=== PATIENT | female | born 1985 | race Caucasian/White ===

== ENCOUNTER 2020-04-21 08:33 | Outpatient (CLI) | payer OTHER, SELFPAY ==
--- NOTE | 2020-04-21 | ECG_ITS ---
Measurements Intervals [place] Rate: 87 P: 49 NV: 156 QRS: 41 QRSD: 97 T: 34 QT: 344 QTc: 416 Interpretive Statements SINUS RHYTHM NONSPECIFIC T-WAVE ABNORMALITY- INF/LAT LEADS BORDERLINE ECG Electronically Signed On 04-21-2020 9:13:19 DIRECTOR OF RESTAURANT by Fermin Espinoza D.O.
== END 2020-04-21 08:34 | disposition home or self-care (01) ==
LOC: ANHCARD 08:46
PROVIDERS: PCP Nurse Practitioner Family; Visit Provider Nurse Practitioner Family
DX: R00.8 Other abnormalities of heart beat (principal); R94.31 Abnormal electrocardiogram [ECG] [EKG]
CPT/HCPCS: 93005

== ENCOUNTER 2022-08-16 08:21 | Emergency (ER) | payer OTHER, SELFPAY ==
[2022-08-16 08:34] VITALS: BP 134/94; PULSE 79; RESP 14; TEMP 36.4; O2SAT 100
--- NOTE | 2022-08-16 08:34 | ED.URI ---
HPI - URI/Sore Throat General Chief Complaint: Upper Respiratory Infection Stated Complaint: Cough,Congestion,Sore Throat Time Seen by Provider: 08/16/22 08:34 Source: patient Mode of arrival: ambulatory Limitations: no limitations History of Present Illness HPI Narrative: 36-year-old female presents with complaint of fatigue, cough, nasal congestion, sore throat for past 4-5 days. Afebrile. Reports she is coughing up pain at peanut buttery brown sputum . Denies chest pain and shortness of breath. States that her sore throat is the worst. Is concerned that she has strep throat. All systems reviewed and negative Except as noted above. Related Data Home Medications Medication Instructions Recorded Confirmed lisinopril 20 1 tablet PO DAILY 03/24/20 08/16/22 mg-hydrochlorothiazide 12.5 mg tablet Allergies Allergy/AdvReac Type Severity Reaction Status Date / Time No Known Allergies Allergy Verified 08/16/22 08:36 Review of Systems Review of Systems: CONSTITUTIONAL: Denies fever, chills, or sweats. reports fatigue. EYES: Denies visual changes, redness, or discharge. ENT: Reports rhinorrhea, congestion, sore throat. Denies otalgia. CARDIOVASCULAR: Denies chest pain, palpitations, or edema. RESPIRATORY: reports cough. Denies dyspnea. GASTROINTESTINAL: Denies abdominal pain, nausea, vomiting, or diarrhea. GENITOURINARY: Denies dysuria or hematuria. SKIN: Denies rash or itching. MUSCULOSKELETAL: Denies back pain, joint pain, or myalgia. NEUROLOGIC: Reports headache. Denies numbness, or weakness. PSYCHIATRIC: Denies anxiety or depression. All other systems reviewed are negative, except as documented in HPI. [facility] Past Medical History Medical History Hypertension Shingles Surgical History Surgical History History of tonsillectomy Previous section Family History Family History Father Hypertension Grandparent Family history of bronchitis Family history of coronary artery disease Social History Social History Smoking status: Never smoker Alcohol intake: never Substance use: never Substance use type: does not use Lack of Transportation: No Lack of Food: Never True Current Housing: I Have Housing Concerned About Future Housing: No Difficulty Paying Gas/Electric Bills: No Difficulty Paying for Meds: No Currently Unemployed: No Education: Bachelor's Degree Difficulty w/ Childcare or Family Care: No Comments At time of signature, agree with nursing past medical, surgical, social and family history. There is no relevant family history pertinent to the presenting complaint. Exam Narrative: GENERAL: This is a well-nourished, well-developed patient, in no apparent distress. HEAD: normocephalic, atraumatic. EYES: PERRL. Sclera clear/white. Vision is grossly intact. EARS: External ears normal, auditory canals clear and without drainage, TMs normal without perforation. Hearing grossly intact. NOSE: External nose normal with Clear nasal drainage and erythema to both nares without swelling. THROAT: Mucous membranes moist, erythema and swelling to posterior pharynx without exudates. NECK: Neck supple, non-tender without lymphadenopathy, masses or thyromegaly. CARDIOVASCULAR: Regular rate and rhythm without murmurs, gallops, or rubs. RESPIRATORY: Clear to auscultation. Breath sounds equal bilaterally. No wheezes, rales, or rhonchi. SKIN: warm, Dry, intact with no suspicious lesions or rash, good texture and turgor. NEURO: awake, alert, and oriented to person, place and time. There were no obvious focal neurologic abnormalities. EXTREMITIES: No joint tenderness, effusion, or edema noted. Course Course Level of Care: Expre
== END 2022-08-16 08:50 | disposition home or self-care (01) ==
PROVIDERS: Emergency Provider Nurse Practitioner Family; PCP Nurse Practitioner Family
DX: J06.9 Acute upper respiratory infection, unspecified (principal); I10 Essential (primary) hypertension
CPT/HCPCS: 87081; 87880; 99213; G0463

== ENCOUNTER 2022-08-16 13:28 | Outpatient (NON) | payer OTHER, SELFPAY | END 2022-08-16 13:29 | disposition home or self-care (01) | LOC: ANHLAB 08-17 13:30 | PROVIDERS: PCP Nurse Practitioner Family; Visit Provider Nurse Practitioner | DX: L72.11 Pilar cyst (principal) | CPT/HCPCS: 87081; 87880; 88304; 99213; G0463 ==

== ENCOUNTER 2023-01-29 15:05 | Emergency (ER) | payer OTHER, SELFPAY ==
--- NOTE | 2023-01-29 15:09 | ED.URI ---
HPI - URI/Sore Throat General Chief Complaint: Upper Respiratory Infection Stated Complaint: sorethroat Time Seen by Provider: 01/29/23 15:09 Source: patient Mode of arrival: ambulatory Limitations: no limitations History of Present Illness HPI Narrative: Patient is a 37-year-old female who presents with 3 days of worsening sore throat and cough. Patient states all last week she had congestion, ear fullness and sinus pressure. Patient took [id number] medication with moderate relief. Patient states symptoms resolved almost completely on Saturday in new symptoms started on Saturday. Patient has history of tonsillectomy. Denies any fever, chills, nausea, vomiting, diarrhea. Related Data Home Medications Medication Instructions Recorded Confirmed lisinopril 20 1 tablet PO DAILY 03/24/20 01/29/23 mg-hydrochlorothiazide 12.5 mg tablet Allergies Allergy/AdvReac Type Severity Reaction Status Date / Time No Known Allergies Allergy Verified 01/29/23 15:08 Review of Systems Review of Systems: All systems reviewed & are unremarkable except as noted in HPI and below Constitutional: Constitutional: Denies body ache(s), Denies chills, Denies fatigue, Denies fever(s), Denies headache(s), Denies malaise and Denies weakness Eyes: Eyes: Denies blurry vision, Denies itchy eyes and Denies loss of vision ENT: Denies otalgia, Denies headache(s), Denies nasal congestion, Denies sinus pain and Reports sore throat Cardiovascular: Cardiovascular: Denies chest pain, Denies irregular heart rhythm and Denies dyspnea Respiratory: Respiratory: Reports cough and Denies dyspnea Gastrointestinal: Gastrointestinal: Denies abdominal pain, Denies diarrhea, Denies nausea and Denies vomiting Musculoskeletal: Musculoskeletal: Denies back pain, Denies myalgias and Denies arthralgias Integumentary/Breasts: Skin/Breast: Denies pruritus and Denies rash Neurologic: Denies headache(s), Denies loss of vision and Denies weakness Psychiatric: Psychiatric: Reports no additional psychiatric complaints Endocrine: Endocrine: Denies fatigue Allergic/Immunologic: Allergic/Immunologic: Denies itchy eyes PMFSH Past Medical History Medical History Hypertension Shingles Surgical History Surgical History History of tonsillectomy Previous section Family History Family History Father Hypertension Grandparent Family history of bronchitis Family history of coronary artery disease Social History Social History Smoking status: Never smoker Alcohol intake: never Substance use: never Substance use type: does not use Lack of Transportation: No Lack of Food: Never True Current Housing: I Have Housing Concerned About Future Housing: No Difficulty Paying Gas/Electric Bills: No Difficulty Paying for Meds: No Currently Unemployed: No Education: Bachelor's Degree Difficulty w/ Childcare or Family Care: No Comments At time of signature, agree with nursing past medical, surgical, social and family history. There is no relevant family history pertinent to the presenting complaint. Exam Const: General: cooperative, healthy appearing, comfortable, no acute distress and well nourished Nutritional Appearance: well nourished Orientation/consciousness: patient oriented x3 Limitations: no limitations HENMT: Head: normal to inspection, normocephalic and atraumatic Ears: hearing grossly normal bilaterally, external ears normal, TM's normal bilaterally, EAC's normal and no periauricular adenopathy Face/Nose/Sinus: Normal external nose present, Normal nasal mucous membranes and turbinates present, normal facial exam, sinuses nontender and face symmetric Face and sinus: normal facial exam, sinus
[2023-01-29 15:23] VITALS: BP 148/99; PULSE 78; RESP 18; TEMP 36.4; O2SAT 100
== END 2023-01-29 15:46 | disposition home or self-care (01) ==
PROVIDERS: Emergency Provider Nurse Practitioner Family; PCP Nurse Practitioner Family
DX: J02.9 Acute pharyngitis, unspecified (principal); I10 Essential (primary) hypertension
CPT/HCPCS: 87081; 87880; 99213; G0463

== ENCOUNTER 2023-06-28 07:30 | Outpatient (CLI) | payer OTHER, SELFPAY ==
--- NOTE | ~2023-06-28 | MR_ITS ---
EXAMINATION: MR brain/brain stem wo con DATE: 06/28/2023 08:49 INDICATION: Changes in migraine and concern for pituitary adenoma TECHNIQUE: Magnetic resonance imaging (MRI) of the brain and brainstem was performed without intraven ous contrast. Sequences included sagittal and axial T1-weighted SE, axial diffusion-weighted FS SE, a xial 3D SWAN, axial T2-weighted FLAIR,, axial T2-weighted FSE. Additional thin axial and coronal T1-w eighted FSE sequences of the region of the pituitary were also obtained. Apparent diffusion coefficie nt (ADC) maps were created. COMPARISON: None. FINDINGS: There are no areas of restricted diffusion to suggest acute infarction. No intracranial hemorrhage or abnormal intracranial mass lesion. Specifically the pituitary is normal in size with no nodular exte nsion above the sella to suggest pituitary macroadenoma. The pituitary stalk appears normal and midli ne. There are no intraparenchymal signal abnormalities seen on the other pulse sequences. The ventric les are symmetric and normal in size. There are no abnormal extra-axial fluid collections. Flow voids are seen in the cerebral arteries on the T2-weighted sequences consistent with their expected patenc y. Visualized orbits and soft tissues are unremarkable. IMPRESSION: 1. Normal brain MR Reviewed, dictated and finalized at location [facility] IMPRESSION: 1. Normal brain MR
== END 2023-06-28 07:31 | disposition home or self-care (01) ==
PROVIDERS: PCP Nurse Practitioner Family; Visit Provider Nurse Practitioner Family
DX: G43.909 Migraine, unspecified, not intractable, without status migrainosus (principal); R79.89 Other specified abnormal findings of blood chemistry; I10 Essential (primary) hypertension
CPT/HCPCS: 70551

== ENCOUNTER 2024-05-29 13:45 | Emergency (ER) | payer OTHER, SELFPAY ==
--- NOTE | 2024-05-29 13:59 | ED_ITS ---
HPI - URI/Sore Throat General Chief Complaint: Upper Respiratory Infection Stated Complaint: fever,chills,bodyaches,cough Time Seen by Provider: 05/29/24 13:45 Source: patient Mode of arrival: ambulatory Limitations: no limitations History of Present Illness HPI Narrative: Patient is a 38-year-old female presents with fever, chills, body aches, headache and cough that started yesterday. Patient has been taking Tylenol and ibuprofen. Reports fever of 101.5. Denies any nausea, vomiting, diarrhea. Related Data Allergies Allergy/AdvReac Type Severity Reaction Status Date / Time No Known Allergies Allergy Verified 05/29/24 13:52 Review of Systems Review of Systems: All systems reviewed & are unremarkable except as noted in HPI and below Constitutional: Constitutional: Reports body ache(s), Reports chills, Denies fatigue, Reports fever(s), Reports headache(s), Denies malaise and Denies weakness Eyes: Eyes: Denies blurry vision, Denies itchy eyes and Denies loss of vision ENT: Denies otalgia, Denies headache(s), Reports nasal congestion, Denies sinus pain and Denies sore throat Cardiovascular: Cardiovascular: Denies chest pain, Denies irregular heart rhythm and Denies dyspnea Respiratory: Respiratory: Reports cough and Denies dyspnea Gastrointestinal: Gastrointestinal: Denies abdominal pain, Denies diarrhea, Denies nausea and Denies vomiting Musculoskeletal: Musculoskeletal: Denies back pain, Reports myalgias and Denies arthralgias Integumentary/Breasts: Skin/Breast: Denies pruritus and Denies rash Neurologic: Reports headache(s), Denies loss of vision and Denies weakness Psychiatric: Psychiatric: Reports no additional psychiatric complaints Endocrine: Endocrine: Denies fatigue Allergic/Immunologic: Allergic/Immunologic: Denies itchy eyes PMFSH Past Medical History Medical History Insomnia Migraine Essential (primary) hypertension Headache Low serum luteinizing hormone (LH) Low serum follicle stimulating hormone (FSH) Hypertension Shingles Surgical History Surgical History Previous section History of tonsillectomy Family History Family History Father Hypertension Depression Anxiety Thyroid disorder Alcoholism Heart problem Grandparent Family history of bronchitis Family history of coronary artery disease Mother Hypertension Social History Social History Smoking status: Never smoker Alcohol intake: never Substance use: never Substance use type: does not use Lack of Transportation: No Lack of Food: Never True Current Housing: I Have Housing Concerned About Future Housing: No Difficulty Paying Gas/Electric Bills: No Difficulty Paying for Meds: No Currently Unemployed: No Education: Bachelor's Degree Difficulty w/ Childcare or Family Care: No Living arrangements: with family Occupation/Education: occupation Gender identity (if verbalized by the patient): Female Comments At time of signature, agree with nursing past medical, surgical, social and family history. There is no relevant family history pertinent to the presenting complaint. Exam Const: General: cooperative, healthy appearing, comfortable, no acute distress and well nourished Nutritional Appearance: well nourished Orientation/consciousness: patient oriented x3 Limitations: no limitations HENMT: Head: normal to inspection, normocephalic and atraumatic Ears: hearing grossly normal bilaterally, external ears normal, TM's normal bilaterally, EAC's normal and no periauricular adenopathy Face/Nose/Sinus: Normal external nose present, Abnormal mucous membranes and turbinates present erythematous bilateral and diffuse, normal facial exam, sinuses nontender and face symmetric Face and sinus: normal facial exam, sinuses nontender and face symmetric Mouth: Yes Normal oral and palatal mucosa present, Yes lip normal, Yes tongue normal, Yes Normal salivary glands and ducts present, Yes oropharynx normal and Yes moist mucous membranes Teeth and gingiva: dentition normal Throat: posterior oropharynx normal, tonsils normal and uvula midline Eyes: General: appearance normal, both eyes and all related structures Alignment and Position: alignment normal and position normal Periorbital: periorbital findings normal Eyelids: eyelids normal Pupils: Equal, round and reactive pupils present Neck: Neck: normal visual inspection, full ROM, no lymphadenopathy and supple Chest: Chest palpation & inspection: normal inspection of the chest and normal palpation of entire chest wall Resp: Effort & Inspection: normal respiratory effort and able to speak in complete sentences Auscultation: clear to auscultation bilaterally, no crackles, no rales, no rhonchi and no wheezes Cardio: Rate: regular rate Rhythm: regular rhythm Heart sounds: S1 normal heart sound present and S2 normal heart sound present GI: Inspection: normal to inspection Skin: General skin exam: normal color and no rashes or lesions noted Neuro: General: patient oriented x3 and moves all extremities Cranial nerves: Yes Equal, round and reactive pupils present Speech: normal speech Gait exam (Neuro): Normal gait present Extrem: General: normal to inspection, full ROM and no edema Psych: Appearance: grossly normal and well kempt Mental Status: mental status grossly normal Speech and movement: Normal speech and movement present Affect: normal affect Attitude: cooperative Thought process: Normal thought process present Course Course Emergency Course: Discharge instructions reviewed with patient, as well as provided in writing per nursing staff. The instructions also include specific and strict return/GO TO THE ER as well as f/u information. All questions have been answered, and the patient deny any further questions with discharge and discharge plan. Portions of this record may have been created with voice recognition software Level of Care: Express Care Visit Vital Signs Vital signs: Vital Signs Temperature 38.1 C H 05/29/24 14:34 Pulse Rate 102 H 05/29/24 14:34 Respiratory Rate 16 05/29/24 14:34 Blood Pressure 145/94 H 05/29/24 14:34 Pulse Oximetry 99 05/29/24 14:34 Oxygen Delivery Room Air 05/29/24 14:34 Temperature 38.1 C H 05/29/24 14:34 Pulse Rate 102 H 05/29/24 14:34 Respiratory Rate 16 05/29/24 14:34 Blood Pressure 145/94 H 05/29/24 14:34 Pulse Oximetry 99 05/29/24 14:34 Oxygen Delivery Room Air 05/29/24 14:34 Reviewed MDM - URI/Sore Throat MDM Narrative Medical decision making narrative: Pt well hydrated appearing, in no respiratory distress, hemodynamically stable. Recommend supportive care. The patient is stable at time of discharge the clinical impression was discussed and the patient was given the opportunity to ask questions, which were addressed as completely as possible given the information available at present. Anticipatory guidance and return to care precautions were discussed and the importance of primary care follow-up was stressed and encouraged. The patient voiced understanding of the plan, indications to return, and the need for follow-up. Differential diagnosis considered: Arana virus, strep pharyngitis, allergic rhinitis, upper respiratory tract infection, sinusitis, rhinosinusitis, nasopharyngitis. viral pharyngitis, otitis media, otitis externa, otitis effusion, foreign body, cerumen impaction, viral syndrome, and influenza.? Exam findings show no acute concerns or changes; patient is non-toxic appearing and is in no distress.? Patient is appropriate for outpatient treatment and follow- up.? Medical Records Attestation: I reviewed the patient's medical records. Lab Data Attestation: I reviewed the patient's lab results. Lab results narrative: Patient was positive for influenza A Discharge Plan Discharge Clinical Impression: Influenza Patient Disposition: Home, Self-Care Condition: Stable Instructions: Influenza (ED) Additional Instructions: Were positive for influenza A. Your Covid is negative Your symptoms are due to a viral illness, which is not treated with antibiotics. Viral symptoms can be present for up to a few weeks. -For fever/pain, you may take: Tylenol 650-1000mg by mouth every 4-6 hours. Do not exceed 4000mg in 24 hours. Advil (Ibuprofen) 600 mg by mouth every 6 hours. Do not exceed 2400mg in 24 hours. 8 AM: Tylenol 11 AM: Ibuprofen 2 PM: Tylenol 5 PM: Ibuprofen 8 PM: Tylenol 11 PM: Ibuprofen 2 AM: Tylenol 5 AM: Ibuprofen -Antihistamine medication such as Benadryl/Zyrtec at night and Claritin/Gabriela during the day can help improve symptoms. -Use Flonase twice a day for 5 days then daily to help reduce the inflammation and dry up your sinuses. -You can also use Sudafed behind the pharmacy counter(12 or 24 hour). Be sure to drink plenty of water with these medications at least 8 ounces with every dose and it is important to drink 8 to 10 glasses of water per day. Water is a natural decongestant -Eat and drink things that are easy to swallow, like tea or soup, or popsicles. -Oral rinses such as: Salt water gargles and/or may use topical anesthetic (eg. Chloraseptic spray) or lozenges to relieve dryness or throat pain). -Frequent hand washing or hand yarn spinner is one of the best ways to prevent spread of infection. -Using a vaporizer or humidifier at night will also help thin secretions and help with coughing up phlegm. -Follow up with primary care provider in 3-5 days if condition is not improving - For new or worsening symptoms go directly to the nearest ER Your blood pressure was elevated above 120/80 today at Urgent Care. This puts you above the threshold for follow up visit with a primary care provider. High blood pressure does not usually cause any symptoms, however it may lead to kidney failure, stroke, heart disease just to name a few if untreated . Many people are anxious when seeing a provider or nurse. As a result, you are not diagnosed with hypertension at this time unless your blood pressure is persistently high at two office visits at least one week apart. Some things that can help lower blood pressure are lifestyle modifications, such as light exercise, decreased salt in diet, and weight loss. It is important to follow up with a PCP about this within 1 week. Patient Language: Greenlandic Prescriptions: New oseltamivir [Tamiflu] 75 mg capsule 75 mg PO Q12H 5 Days Qty: 10 0RF No Action lisinopril-hydrochlorothiazide 20-12.5 mg tablet 1 tablet PO DAILY Qty: 90 0RF Follow-up/Referrals: Justina Corbin APRN [Primary Care Provider] - 3 Days Stand Alone Forms: Work/School Release IP Time of Disposition: 14:33
[2024-05-29 14:34] VITALS: BP 145/94; PULSE 102; RESP 16; TEMP 38.1; O2SAT 99
[2024-05-29 15:30] LABS: EDINFLUASCREEN Positive (Negative); EDINFLUBSCREEN Negative (Negative)
== END 2024-05-29 14:39 | disposition home or self-care (01) ==
PROVIDERS: Emergency Provider Nurse Practitioner Family; PCP Nurse Practitioner Family
DX: J11.1 Influenza due to unidentified influenza virus with other respiratory manifestations (principal); I10 Essential (primary) hypertension
CPT/HCPCS: 87804; 99213; G0463

== ENCOUNTER 2024-12-22 08:03 | Emergency (ER) | payer OTHER, SELFPAY ==
[2024-12-22 08:16] VITALS: BP 113/81; PULSE 64; RESP 18; TEMP 36.3; O2SAT 100
--- OUTSIDE RECORDS SUMMARY | 2024-12-22 08:22 | XMS_ITS | Encounter Summary ---
Author Organization [facility] Address [address] [place] [id number] Care Team Providers Care Fish Tender Name Role Phone Justina Corbin [facility] Primary Care Provider + Encounter Details Date Type Department Care Team (Late st Contact Info) Description 09/06/2020 Shared Spectrum Message Enc [facility], [address] [address] Mychart, [facility] Provider My Chart Message Reply Social History Tobacco Use Types Packs/Day Years Used Date Smoking Tobacco: Never Smokeless Tobacco: Never Alcohol Use Standard Drinks/Week Comments Yes 0 (1 standard drink = 0.6 oz pur e alcohol) AUDIT-C Answer Date Recorded Q1: How often do you have a drink containing alc ohol? 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 No / Unsure 08/22/2020 10:18 AM CDT documented as of this encounter Plan of Treatment Not on file documented as of this encounter Visit Diagnoses Not on filedocumented in this encounter Care Teams Fish Tender Relationship Specialty Start Date End Date Justina Corbin, CERTIFIED PERSONAL FINANCE COUNSELOR- [address] [place] [address] PCP - General NURSE PRACTITIONER 06/27/20 documented as of this encounter
--- OUTSIDE RECORDS SUMMARY | 2024-12-22 08:22 | XMS_ITS | Clinical Summary ---
Author Organization [facility] [place] Address [facility] [place] [address] Care Team Providers Care Anchor Operator Name Role Phone No, Physician Primary Care Provider [phone] Allergies No known active allergies Medications enalapril (VASOTEC) 5 mg tablet enalapril maleate 5 mg tablet Active lisinopril-hydr oCHLOROthiazide (ZESTORETIC) 20-12.5 mg per tablet TK 1 T PO QD 1 9 Active TRI-SPRINTEC, 28, 0.18/0.215/0.25 mg-35 mcg (28) per tablet TK 1 T PO QD 1 9 Active raNITIdine (ZANTAC) 150 mg tablet ranitidine 150 mg tablet Active Active Problems No known active problems Social History Tobacco Use Types Packs/Day Years Used Date Smoking Tobacco: Never Personal Safety Answer Date Recorded Getting School Help Needed Not on file 07/20 Comments Unknown Sex and Gender Information Value Date Recorded Sex Assigned at Not on file Legal Sex Female 8:03 AM CDT Gender Identity Not on file Sexual Orientation Not on file Obstetrics History Plan of Treatment Not on file Insurance [facility] CHO[employer] [facility] HMO/PPO Address: [facility] [address] [place] [address] Care Teams Anchor Operator Relationship Specialty Start Date End Date No, Physician PCP - General 10/22/18
--- OUTSIDE RECORDS SUMMARY | 2024-12-22 08:22 | XMS_ITS | Encounter Summary ---
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 No / Unsure 07/22/2020 10:37 AM CDT documented as of this encounter Plan of Treatment Not on file documented as of this encounter Procedures Procedure Name Priority Date/Time Associated Diagnosis Comments HEMOGLOBIN, GLYCOSYLATED Routine 06/14/2022 COMPREHENSIVE METABOLIC PANEL Routine 06/14/2022 LIPID PANEL Routine 06/14/2022 CBC, MANUAL DIFF Routine 06/14/2022 THYROID STIM HORMONE TSH Routine 06/14/2022 SARS-COV-2 COVID-19 ANTIBODY Routine 04/21/2020 CBC (OUTSIDE LAB) Routine 04/21/2020 CBC (OUTSIDE LAB) Routine 04/21/2020 COMPREHENSIVE METABOLIC PANEL Routine 04/21/2020 LIPID PANEL Routine 04/21/2020 LIPID PANEL Routine 04/21/2020 THYROID STIM HORMONE TSH Routine 04/21/2020 THYROID STIM HORMONE TSH Routine 04/21/2020 documented in this encounter Results * COMPREHENSIVE METABOLIC PANEL (06/14/2022) Pathologist [facility] SODIUM S/P/B 136 GLUCOSE 78 mg/dL AST 15 BUN 15 CREATININE S/P/B 0.71 0.5 - 1.0 CALCIUM S/P/B 9.7 POTASSIUM S/P/B 4.1 CHLORIDE S/P/B 97 ALT 11 GFR ESTIMATE 114 us Default History Genericprovider LABORATORY Final Result * LIPID PANEL (06/14/2022) CHOLESTEROL 191 TRIGLYCERIDES 98 HDL 76 LDL (CALCULATED) 96 NON HDL CHOLESTEROL 115 us Default History Genericprovider LABORATORY Final Result * CBC, MANUAL DIFF (06/14/2022) Pathologist [facility] WBC 9.7 HGB 14.5 HCT 43.7 PLT 286 us Default History Genericprovider LABORATORY Final Result * HEMOGLOBIN, GLYCOSYLATED (06/14/2022) Pathologist [facility] HGB A1C 5.0 % us Default History Genericprovider LABORATORY Final Result * THYROID STIM HORMONE, TSH (06/14/2022) [facility] TSH 2.35 us Default History Genericprovider LABORATORY Final Result * SARS-COV-2 COVID-19 ANTIBODY (04/21/2020) Pathologist [facility] SARS-COV-2 IGG Positive 04/21/2020 us Doc [facility] Abstract PROCEDURES-UNRESULTED Final Result * LIPID PANEL (04/21/2020) [facility] CHOLESTEROL 168 HDL 55 TRIGLYCERIDES 192 NON HDL CHOLESTEROL 113 LDL (CALCULATED) 84 04/21/2020 us Doc [facility] Abstract LABORATORY Final Result * CBC (OUTSIDE LAB) (04/21/2020) Pathologist [facility] WBC 8.6 HGB 13.4 HCT 40.2 PLT 292 04/21/2020 us Doc [facility] Abstract LAB-OUTSIDE/ABSTRACTED Final Result * THYROID STIM HORMONE, TSH (04/21/2020) [facility] TSH 3.03 04/21/2020 us Doc [facility] Abstract LABORATORY Final Result * THYROID STIM HORMONE, TSH (04/21/2020) Pathologist [facility] TSH 3.03 04/21/2020 us Doc [facility] Abstract LABORATORY Final Result * CBC (OUTSIDE LAB) (04/21/2020) Pathologist [facility] WBC 8.6 HGB 13.4 HCT 40.2 PLT 292 04/21/2020 us Doc [facility] Abstract LAB-OUTSIDE/ABSTRACTED Final Result * (ABNORMAL) COMPREHENSIVE METABOLIC PANEL (04/21/2020) SODIUM S/P/B 139 POTASSIUM S/P/B 4.1 CO2 29 CHLORIDE S/P/B 100 GLUCOSE 78 mg/dL CALCIUM S/P/B 9.2 BUN 11 CREATININE S/P/B 0.69 0.5 - 1.0 EGFR AFR. AMER. 133(A) <=90 EGFR NON-AFR. AMER. 114(A) <=90 ALKALINE PHOSPHATASE S/P/B 74 ALT 28 AST 15 BILIRUBIN TOTAL S/P/B 0.7 ALBUMIN S/P/B 4.1 3.5 - 5.0 TOTAL PROTEIN S/P/B 7.0 GLOBULIN 2.9 04/21/2020 us Doc [facility] Abstract LABORATORY Final Result * LIPID PANEL (04/21/2020) CHOLESTEROL 188 HDL 55 TRIGLYCERIDES 192 NON HDL CHOLESTEROL 113 LDL (CALCULATED) 84 04/21/2020 us Doc [facility] Abstract LABORATORY Final Result documented in this encounter Visit Diagnoses Not on filedocumented in this encounter Care Teams Bulk Plant Manager Relationship Specialty Start Date End Date Justina Corbin, SWATCHER- [address] [place] [phone] PCP - General NURSE PRACTITIONER 06/27/20 documented as of this encounter
--- OUTSIDE RECORDS SUMMARY | 2024-12-22 08:22 | XMS_ITS | Clinical Summary ---
Author Organization [facility] Address [address] [place] [address] Care Team Providers Care Coater Name Role Phone Justina Corbin Mary [facility] Primary Care Provider + Allergies No known active allergies Medications lisinopril-hydro CHLOROthiazide 20-12.5 MG tablet Take 1 tablet by mouth daily. 06/02/2020 Active TRI-SPRINTEC 0.18/0.215/0.25 MG-35 MCG tablet Take 1 tablet by mouth daily. 05/23/2020 Active Active Problems Problem Noted Date Diagnosed Date Irregular heart beat 07/05/2020 Heart palpitations 07/05/2020 Essential hypertension 07/05/2020 Immunizations Immunization Administration Dates Next Due Tdap (Generic) 05/25/2016 Family History Medical History Relation Comments AAA Father CHF Father Coronary artery disease Father Heart Attack Father Hyperlipidemia Father Stent Cardiac Father Thyroid Disease Father Vascular Disease Father Heart Attack Maternal Grandfather Heart Attack Maternal Grandmother Hypertension Mother Vascular Disease Mother Heart Attack Paternal Grandfather Pacemaker Paternal Grandfather CHF Paternal Grandmother Relation Status Comments Father (Age 72) Maternal Grandfather (Age 57) Maternal Grandmother (Age 62) Mother Alive Paternal Grandfather (Age 60) Paternal Grandmother (Age 83) Social History Tobacco Use Types Packs/Day Years Used Date Smoking Tobacco: Never Smokeless Tobacco: Never Tobacco Cessation:Counseling Given: Not Answered Alcohol Use Standard Drinks/Week Comments Yes 0 [...] on file 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 Gender Identity Not on file Sexual Orientation Not on file Last Filed Vital Signs Vital Sign Reading Time Taken Comments Blood Pressure 130/70 12/18/2022 9:11 AM CDT Pulse 80 12/18/2022 8:58 AM CDT Temperature - - Respiratory Rate - - Oxygen Saturation 100% 12/18/2022 8:58 AM CDT Inhaled Oxygen Concentration - - Weight 94.5 kg (208 lb 6.4 oz) 12/18/2022 8:58 A M CDT Height 175.3 cm (5' 9) 12/18/2022 8:58 AM CDT Body Mass Index 30.78 12/18/2022 8:58 AM CDT Plan of Treatment Health Maintenance Due Date Last Done Comments Cervical Cancer Screening Pa p Smear (Age 30 to 64) Every 3 Years 1986 Annual Physical 1989 Hepatitis C 2004 Hepatitis B Vaccines (1 of 3 - 19+ 3-dose series) 2005 HPV Vaccines (1 - 3-dose SCD M series) 2013 Cervical Cancer Screening Pa p with HPV Testing (Age 30 to 64) Every 5 Years 2016 Cervical Cancer Screening with HPV 2016 COVID-19 Vaccine (2023-2 5 season) 2024 DTaP, Tdap and Td Vaccines ( 2 - Td or Tdap) 05/25/2026 05/25/2016 Meningococcal B Vaccine Aged Out No l onger eligible based on patient's age to complete this topic Meningococcal Vaccine Aged Out No je aleida eligible based on patient's age to complete this topic Pneumococcal Vaccine: Pediat rics (0 to 5 Years) and At-Risk Patients (6 to 49 Years) Aged Out No longer eligi ble based on patient's age to complete this topic RSV Immunizations Under 20 Months Aged Out No longer eligible based on patient's age to complete this topic Insurance [facility] Care Teams Coater Relationship Specialty Start Date End Date Justina Corbin, OFFSET PRESS OPERATOR APPRENTICE-BC [address] [place] [phone] PCP - General NURSE PRACTITIONER 06/27/20
--- OUTSIDE RECORDS SUMMARY | 2024-12-22 08:22 | XMS_ITS | Clinical Summary ---
Author Organization [facility] [employer] Address [address] [place] [address] Care Team Providers Care Water Main Installer Helper Name Role Phone Justina Corbin Mary ALFARO-DIRECTOR DATABASE Primary Care Provider Source Comments [facility],non-owned Affiliates and Associated Physician Practices is amultiple site organization consisting of ambulatory clinics and hospital sitesin [place], [place], [place] and [place]. This disclosure is being madepursuant to the Care Everywhere program and may not contain all information available regarding this patient. Last updated 18.[facility] [employer] Allergies No known active allergies Medications * Be aware that medications may not be up to date on this document. Alwaysverify current medications with the patient. Tri-Sprintec tablet 08/02/2023 Active lisinopril-hydro CHLOROthiazide (Prinzide; Zestoretic) 20-12.5 MG tablet Take 1 (one) tablet by mouth once daily 06/28/2023 Active Active Problems Problem Noted Date Diagnosed Date Low serum follicle stimulating hormone (FSH) 05/2023 Overview (08/05/2023): Low LH and Low FSH with normal estradiol On an OCP tri-sprintec tablets Immunizations Immunization Administration Dates Next Due TDAP (7yrs+) 05/25/2016 Social History Tobacco Use Types Packs/Day Years Used Date Smoking Tobacco: Never Smokeless Tobacco: Never Tobacco Cessation:Counseling Given: Not Answered Alcohol Use Standard Drinks/Week Comments Yes 3 (1 standard drink = 0.6 oz pur e alcohol) Comments No Sex and Gender Information Value Date Recorded Sex Assigned at Not on file Legal Sex Female 10:47 AM CDT Gender Identity Not on file Sexual Orientation Not on file Last Filed Vital Signs Vital Sign Reading Time Taken Comments Blood Pressure 145/91 08/05/2023 9:16 AM CDT Pulse 84 08/05/2023 9:16 AM CDT Temperature 36.8 C (98.3 F) 08/05/2023 9:16 AM CDT Respiratory Rate 14 08/05/2023 9:16 AM CDT Oxygen Saturation 97% 08/05/2023 9:16 AM CDT Inhaled Oxygen Concentration - - Weight 102.4 kg (225 lb 12.8 oz) 08/05/2023 9:16 AM CDT Height 175.3 cm (5' 9) 08/05/2023 9:16 AM CDT Body Mass Index 33.34 08/05/2023 9:16 AM CDT Plan of Treatment Health Maintenance Due Date Last Done Comments HIV SCREENING 2001 HEPATITIS C SCREENING 08/22/2004 HEPATITIS B VACCINE (1 of 3 - 19+ 3-dose series) 2005 PAP SMEAR 08/28/2007 HPV VACCINE (1 - 3-dose SCDM series) 2013 COVID-19 VACCINE (2023-2 5 season) 2024 DEPRESSION SCREENING 05/06/2024 INFLUENZA VACCINE (#1) 2025 DTAP/TDAP/TD VACCINES (2 - T d or Tdap) 05/25/2026 05/25/2016 ZOSTER VACCINE (1 of 2) 2036 HIB VACCINE Aged Out No longer eligi ble based on patient's age to complete this topic MENINGOCOCCAL (Group B) VACC INE SHARED DECISION-MAKING Aged Out No longer eligibl e based on patient's age to complete this topic MENINGOCOCCAL GROUPS A/C/Y/W VACCINE Aged Out No longer eligible b ased on patient's age to complete this topic PNEUMOCOCCAL VACCINE Aged Out No long er eligible based on patient's age to complete this topic Insurance [facility] Member Subscriber Plan / Payer (Ef fective 2016-Present) Name:Tammy Huddleston Relation to Subscriber:Self Name:Tammy Huddleston Payer ID:[id number] (NAIC) Type:HMO Address: [place] [phone] [facility] Care Teams Water Main Installer Helper Relationship Specialty Start Date End Date Justina Corbin APRN-SAIMA [address] [place] [phone] PCP - General Nurse Practitioner Family 08/05/23
--- OUTSIDE RECORDS SUMMARY | 2024-12-22 08:22 | XMS_ITS | Encounter Summary ---
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
--- OUTSIDE RECORDS SUMMARY | 2024-12-22 08:22 | XMS_ITS | Clinical Summary ---
Author Organization [employer] [facility] - 2022 Address [address] [facility] 3[address] [place] [address] Phone Care Team Providers Care Wallpaper Hanger Helper Name Role Phone Everardo Castillo MD Primary Care Provider [phone] Allergies No known active allergies Medications VIT/FE FUMARATE/FA (ESTHELA ORAL) Take 1 Tab by mouth daily. Active Family History Medical History Relation Name Comments Healthy Father Heart Disease Maternal Grandfather Heart Disease Maternal Grandmother Other Mother pancreatitis Heart Disease Paternal Grandfather Heart Disease Paternal Grandmother Relation Name Status Comments Father Maternal Grandfather Maternal Grandmother Mother Paternal Grandfather Paternal Grandmother Social History Tobacco Use Types Packs/Day Years Used Date Smoking Tobacco: Never Smokeless Tobacco: Never Alcohol Use Standard Drinks/Week Comments No 0 (1 standard drink = 0.6 oz pur e alcohol) Comments Yes Sex and Gender Information Value Date Recorded Sex Assigned at Not on file 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 Gender Identity Not on file Sexual Orientation Not on file Occupation Industry Job Start Date Job End Date Not on file Not on file Not on file Not on file Plan of Treatment Health Maintenance Due Date Last Done Comments HPV VACCINES (1 - 3-dose series) 2001 DTAP/TDAP/TD VACCINES (1 - Tdap) 2005 HEPATITIS B VACCINES (1 of 3 - 19+ 3-dose series) 08/05 HPV/Cotest (21-29) 08/28/2007 CERVICAL CANCER SCREENING 2016 HPV/Cotest (30-65) 2016 PAP SMEAR 2016 INFLUENZA VACCINE (#1) 2024 RSV VACCINE (60+ or ) (1 - 1-dose 75+ series) 2061 Insurance [employer] PPO [id number] Care Teams Wallpaper Hanger Helper Relationship Specialty Start Date End Date Everardo Castillo MD PCP - General Family Practice 05/08/11
--- NOTE | 2024-12-22 08:51 | ED_ITS ---
HPI - Abdominal Pain General Chief Complaint: Abdominal Pain Stated Complaint: Stomach Pain / RT Eye Problem Time Seen by Provider: 12/22/24 08:35 Source: patient and RN notes reviewed Mode of arrival: ambulatory Limitations: no limitations History of Present Illness HPI narrative: Jcgyac-[id number]-[id number]-old female presents Express Care epigastric pain intermittently over the last month. Patient has a history of stomach ulcers. Patient currently takes semaglutide. Patient reports a constant epigastric ache that is worse after she eats approximately 2 hours after eating. Patient reports when she has episodes she has sharp stabbing pain in her epigastrium that radiates into her back. Patient reports some nausea but denies any vomiting. Patient denies any diarrhea or constipation. Patient denies any black or tarry stools. Patient says she had a bad episode last night after she ate came in today for further evaluation. Patient denies any gallbladder problems. Patient also woke up this morning with her right eyelid and right eye red and swollen. Patient denies any vision problems, discharge, or eye pain. Patient denies any fevers, body aches, chills, chest pains, breathing problems, or any other symptoms. Patient is currently pain-free. Related Data Home Medications ?Medication ?Instructions ?Recorded ?Confirmed ?Last Taken ?Type semiglutide .Route 10/15/24 10/15/24 Unk nown History testosterone 75 mg implant pellet 150 mg subcut ONCE 0 10/15/24 10/15/24 Unknown History (Testopel) Allergies Allergy/AdvReac Type Severity Reaction Status Date / Time No Known Allergies Allergy Verified 12/22/24 08:27 Review of Systems Review of Systems: CONSTITUTIONAL: Denies fever, chills, or sweats. EYES: Denies visual changes, or discharge. Positive for redness. ENT: Denies rhinorrhea, congestion, sore throat, or otalgia. CARDIOVASCULAR: Denies chest pain, palpitations, or edema. RESPIRATORY: Denies cough or dyspnea. GASTROINTESTINAL: Positive for abdominal pain and nausea. Negative for black and tarry stools, vomiting blood, constipation, vomiting, or diarrhea. GENITOURINARY: Denies dysuria or hematuria. SKIN: Denies rash or itching. MUSCULOSKELETAL: Denies back pain, joint pain, or myalgia. NEUROLOGIC: Denies headache, numbness, or weakness. PSYCHIATRIC: Denies anxiety or depression. All other systems reviewed are negative, except as documented in HPI. [facility] Past Medical History Medical History Insomnia Migraine Essential (primary) hypertension Headache Low serum luteinizing hormone (LH) Low serum follicle stimulating hormone (FSH) Hypertension Shingles Surgical History Surgical History Previous section History of tonsillectomy Family History Family History Father Hypertension Depression Anxiety Thyroid disorder Alcoholism Heart problem Grandparent Family history of bronchitis Family history of coronary artery disease Mother Hypertension Social History Social History Social History: 06/21/24 very confident with medical forms Smoking status: Never smoker Alcohol intake: never Substance use: never Substance use type: does not use Do You Feel Safe in your Home?: Yes Lack of Transportation: No Lack of Food: Never True Current Housing: I Have Housing Concerned About Future Housing: No Difficulty Paying Gas/Electric Bills: No Difficulty Paying for Meds: No Currently Unemployed: No Education: Bachelor's Degree Difficulty w/ Childcare or Family Care: No Living arrangements: with family Occupation/Education: occupation Gender identity (if verbalized by the patient): Female Comments At the time of my signature, I reviewed and agree with the nursing past medical, surgical, social, and family history. There is no relevant family history pertinent to the patient complaint. Exam Narrative: GENERAL: This is a well-nourished, well-developed adult, in no apparent distress. They are non ill-appearing, nontoxic appearing. HEAD: normocephalic, atraumatic. EYES: Sclera clear/white. Left Conjunctiva normal. Right conjunctiva injected. No exudate Pinguecula present to right lateral eye. Vision is grossly intact. Extraocular movements intact. Pupils PERRLA. Right upper and lower eyelids normal. Left upper and lower eyelids normal. EARS: External ears normal, NOSE: External nose normal THROAT: Mucous membranes moist, NECK: Neck supple, CARDIOVASCULAR: Regular rate and rhythm without murmurs, gallops, or rubs. RESPIRATORY: Clear to auscultation. Breath sounds equal bilaterally. No wheezes, rales, or rhonchi. GASTROINTESTINAL: Abdomen soft, epigastric tender to palpate., nondistended. Bowel sounds are active. No hepato-splenomegaly, or palpable masses. No guarding or rigidity. No rebound tenderness. Negative Gannon sign. SKIN: warm, Dry, intact with no suspicious lesions or rash, good texture and turgor. NEURO: awake, alert, and oriented to person, place and time. There were no obvious focal neurologic abnormalities. EXTREMITIES: No joint tenderness, effusion, or edema noted. Course Course Emergency Course: Portions of this record may have been created with voice recognition software Level of Care: Express Care Visit Vital Signs Vital signs: Vital Signs Temperature 97.3 F L 12/22/24 08:16 Pulse Rate 64 12/22/24 08:16 Respiratory Rate 18 12/22/24 08:16 Blood Pressure 113/81 12/22/24 08:16 Pulse Oximetry 100 12/22/24 08:16 Oxygen Delivery Room Air 12/22/24 08:16 Temperature 97.3 F L 12/22/24 08:16 Pulse Rate 64 12/22/24 08:16 Respiratory Rate 18 12/22/24 08:16 Blood Pressure 113/81 12/22/24 08:16 Pulse Oximetry 100 12/22/24 08:16 Oxygen Delivery Room Air 12/22/24 08:16 Reviewed Transfer Transfered to: [facility] Transportation: Other (Private vehicle) Transfer rationale: Epigastric pain, patient requiring higher level care, further lab work possible advanced imaging/ultrasound Accepting physician: Dr. Guerrero MDM - Abdominal Pain MDM Narrative Medical decision making narrative: No peritoneal findings. Patient is tender to palpate near the epigastric. Negative Gannon sign. But she could have another stomach ulcer given her history however other intra-abdominal conditions cannot be ruled out. Patient may also have conjunctivitis and appears she might have pinguecula to her right eye. Will send prescription of polymyxin eye drops. Through shared decision making discussed with patient the option to have outpatient follow-up with her PCP about her symptoms or to go to the ER today for further evaluation, patient would like to go to the ER today says she feels like her symptoms are worsening. Patient would like to go to [facility] ER. Called over to [facility] ER and spoke to Reji Mcdonnell who is aware this patient and Dr. Guerrero accepted the patient for transfer. Patient advised to remain NPO proceed immediately to the ER. Patient will drive herself via private vehicle. Patient hemodynamically stable for transfer her Differential Diagnosis Differential diagnosis: Likely other (Gastritis, stomach ulcer, cholecystitis, gallstone, conjunctivitis, pinguecula) Critical Care Time Critical Care Time Critical Care Time: No Discharge Plan Discharge Clinical Impression: Conjunctivitis, Acute epigastric pain Patient Disposition: Acute Care Hospital Condition: Stable Additional Instructions: Go to the ER immediately Use the eyedrops as directed. Patient Language: Kinyarwanda Prescriptions: New polymyxin B sulf-trimethoprim 10,000 unit- 1 mg/mL drops 1 drp RIGHT EYE Q3H 7 Days Qty: 10 0RF Rx Instructions: while awake; do not exceed 6 doses in 24 hours No Action semiglutide .Route Rx Instructions: as directed Testopel 75 mg pellet 150 mg subcut ONCE Rx Instructions: as a single dose lisinopril-hydrochlorothiazide 20-12.5 mg tablet 1 tablet PO DAILY Qty: 90 1RF Follow-up/Referrals: Justina Corbin APRN [Primary Care Provider, [facility]] Time of Disposition: 08:47
== END 2024-12-22 08:50 | disposition short-term general hospital (02) ==
PROVIDERS: PCP Nurse Practitioner Family
DX: H10.9 Unspecified conjunctivitis (principal); R10.13 Epigastric pain; I10 Essential (primary) hypertension
CPT/HCPCS: 99212; G0463